=== PATIENT | male | born 1960 | race Caucasian/White ===

== ENCOUNTER 2025-02-08 15:15 | Emergency (ER) | payer OTHER, MEDICARE, SELFPAY ==
[2025-02-08 15:17] VITALS: BP 147/104; PULSE 71; RESP 16; TEMP 36.9; O2SAT 99; BMI 28.5
[2025-02-08 15:42] LABS: Bedside Glucose 373 mg/dL (74-106)
--- NOTE | 2025-02-08 15:45 | EX.ED.DYSGE1 ---
HPI <RADHA Fitzpatrick - Last Filed: 02/08/25 17:06> History of Present Illness Chief Complaint: Hyperglycemia Narrative Narrative: 64-year-old male with past medical history of HLD, PVCs presents with hyperglycemia. He was going through his father's possessions and found a glucometer and decided to check his sugar and it read over 500 and then it had an error so he decided to come in. He has no history of diabetes. He states of the last year he does not have much of an appetite and has lost 20 pounds. Sometimes he is thirsty and drinks a lot which causes him to urinate a lot. He has no abdominal pain. No nausea or vomiting. No fever or chills. PFSH <RADHA Fitzpatrick Last Filed: 02/08/25 17:06> PFS Home Medications ?Medication ?Instructions ?Recorded ?Last Taken ?Type Lactobacillus acidophilus and 2 ea PO DAILY 04/13/16 Unknown History rhamnosus 15 billion cell capsule (Probiotic) Ranitidine [Zantac] 150 mg PO BID 04/13/16 Unknown History aspirin 81 mg chewable tablet 81 mg PO DAILY@0800 04/13/16 Unknown History fluticasone propionate 50 1 spray BID 04/13/16 Unknown History mcg/actuation nasal spray,suspension loratadine 10 mg tablet (Allergy 10 mg PO DAILY 04/13/16 Unknown History Relief (loratadine)) metformin 500 mg tablet 500 mg PO BID 30 days #60 tabs 02/08/25 Unknown Rx Allergy/AdvReac Type Severity Reaction Status Date / Time Sulfa (Sulfonamide Allergy Rash Verified 02/08/25 15:20 Antibiotics) prednisone AdvReac Abd Verified 02/08/25 15:20 cramps/diarrhea Social History Smoking Status: Never smoker ROS <RADHA Fitzpatrick - Last Filed: 02/08/25 17:06> ROS ED ROS Narrative Constitutional: Negative for fever, chills, malaise. CVS: Negative for chest pain. Respiratory: Negative for shortness of breath. GI: Negative for abdominal pain, nausea, vomiting. : Negative for dysuria. EXAM <RADHA Fitzpatrick Last Filed: 02/08/25 17:06> Physical Exam Narrative Exam Narrative: CONST: Patient sitting in no acute distress. EYES: Normal inspection. ENT: Normal inspection, moist mucous membranes. NECK: Normal inspection. RESP: No respiratory distress, CTAB. CVS: Regular rate and rhythm, no murmur, no gallop. ABD: Soft and nontender, no guarding or rebound, nondistended. SKIN: Color normal, no rash, warm, dry, intact. EXTREMITIES: Normal appearance, no pedal edema. NEURO: Alert and answering questions appropriately. PSYCH: Normal affect. Const Vital Signs: 02/08/25 15:17 02/08/25 15:27 Temperature 98.4 F Temperature Source Oral Pulse Rate 71 Respiratory Rate 16 Respiratory Effort Normal Non-Labored Respiratory Pattern Normal Blood Pressure 147/104 H Blood Pressure Mean 118 Pulse Ox 99 Oxygen Delivery Method Room Air <Dr. Tim Petit MD - Last Filed: 02/08/25 15:57> Physical Exam Const Vital Signs: 02/08/25 15:17 02/08/25 15:27 Temperature 98.4 F Temperature Source Oral Pulse Rate 71 Respiratory Rate 16 Respiratory Effort Normal Non-Labored Respiratory Pattern Normal Blood Pressure 147/104 H Blood Pressure Mean 118 Pulse Ox 99 Oxygen Delivery Method Room Air MDM <RADHA Fitzpatrick - Last Filed: 02/08/25 17:06> [facility] MDM Narrative Medical decision making narrative: History gathered from: Patient and spouse Differential includes new onset diabetes, hyperglycemia, DKA 64-year-old male checked his blood sugar at home and it was high. He has no history of diabetes. He checked it because a family member had a glucometer. He appears well and nontoxic. Vital stable. His exam is benign. Fingerstick glucose is over 300. CBC within normal limits. BMP shows normal electrolytes and renal function. Glucose is 377 with normal CO2 and anion gap. This is consistent with new onset type 2 diabetes without DKA. He was given IV fluids and first dose of metformin. I prescribed metformin 500 twice daily for home. His A1c is 13.1 so he will likely require more medication management and should follow-up with a primary care doctor this week. He was discharged in stable condition. I have personally performed a face to face assessment of the patient and have reviewed the MIA Note. I performed a substantive portion of the visit including all aspects of the following. My ragland findings include: History is sick 4-year-old male family history of diabetes. Today checked his blood sugar was elevated came in the emergency department. He is about 20 pound weight loss in the last year but he thinks it was because he was watching what he ate. He denies any vomiting or diarrhea. No dysuria. No known history of him being diabetic. Exam is [well-appearing 64-year-old male. Vital signs stable afebrile. H EENT exam pupils round reactive light. Moist mucous membranes. No facial droop. Normal speech. No trauma. Neck nontender. No lymphadenopathy. Back nontender. Lungs clear equal and symmetrical bilaterally. Heart regular rhythm rate about 70 no murmur. Chest wall ribs nontender. Abdomen soft nontender. Moving all 4 extremities. Nontender no edema. Normal strength. Neurologically is awake and alert. Answering questions following commands.] Medical Decision Making [we checked his blood sugar here was 373. Will do screening labs give him a liter normal saline. Do a hemoglobin A1c. He will be diagnosed as a new onset diabetic and outpatient follow-up. We may choose to start him on metformin.] Other additions or changes: [None] Lab Data Labs: Laboratory Results - last 24 hr 02/08/25 02/08/25 15:24 15:40 WBC 8.2 RBC 5.35 Hgb 15.9 Hct 46.1 MCV 86.2 MCH 29.7 MCHC 34.5 RDW Std Deviation 39.1 RDW Coeff of Rhonda 12.6 Plt Count 243 MPV 10.0 Immature Gran % (Auto) 0.400 Neut % (Auto) 70.0 Lymph % (Auto) 20.2 Mills % (Auto) 7.4 Eos % (Auto) 1.5 Baso % (Auto) 0.5 Absolute Neuts (auto) 5.7 Absolute Lymphs (auto) 1.65 Nucleated RBC % 0 Sodium 138 Potassium 3.9 Chloride 101 Carbon Dioxide 24.3 Anion Gap 12 BUN 12 Creatinine 0.97 Estim Creat Clear Calc 87.13 Est GFR (MDRD) Non-Af 86 BUN/Creatinine Ratio 12.5 Glucose 377 H Hemoglobin A1c 13.1 H Calcium 9.3 POC Glucose 373 H <Dr. Tim Petit MD - Last Filed: 02/08/25 15:57> MDM MDM Narrative Medical decision making narrative: I have personally performed a face to face assessment of the patient and have reviewed the MIA Note. I performed a substantive portion of the visit including all aspects of the following. My ragland findings include: History is sick 4-year-old male family history of diabetes. Today checked his blood sugar was elevated came in the emergency department. He is about 20 pound weight loss in the last year but he thinks it was because he was watching what he ate. He denies any vomiting or diarrhea. No dysuria. No known history of him being diabetic. Exam is [well-appearing 64-year-old male. Vital signs stable afebrile. H EENT exam pupils round reactive light. Moist mucous membranes. No facial droop. Normal speech. No trauma. Neck nontender. No lymphadenopathy. Back nontender. Lungs clear equal and symmetrical bilaterally. Heart regular rhythm rate about 70 no murmur. Chest wall ribs nontender. Abdomen soft nontender. Moving all 4 extremities. Nontender no edema. Normal strength. Neurologically is awake and alert. Answering questions following commands.] Medical Decision Making [we checked his blood sugar here was 373. Will do screening labs give him a liter normal saline. Do a hemoglobin A1c. He will be diagnosed as a new onset diabetic and outpatient follow-up. We may choose to start him on metformin.] Other additions or changes: [None] History & Record Review Discussion w/independent historian: Patient and Family Additional record(s) reviewed:: Prior inpatient record, Prior outpatient record, Prior ED visit and Prior labs Lab Data Attestation: I reviewed the patient's lab results. Labs: Laboratory Results - last 24 hr 02/08/25 02/08/25 15:24 15:40 WBC 8.2 RBC 5.35 Hgb 15.9 Hct 46.1 MCV 86.2 MCH 29.7 MCHC 34.5 RDW Std Deviation 39.1 RDW Coeff of Rhonda 12.6 Plt Count 243 MPV 10.0 Immature Gran % (Auto) 0.400 Neut % (Auto) 70.0 Lymph % (Auto) 20.2 Mills % (Auto) 7.4 Eos % (Auto) 1.5 Baso % (Auto) 0.5 Absolute Neuts (auto) 5.7 Absolute Lymphs (auto) 1.65 Nucleated RBC % 0 Sodium 138 Potassium 3.9 Chloride 101 Carbon Dioxide 24.3 Anion Gap 12 BUN 12 Creatinine 0.97 Estim Creat Clear Calc 87.13 Est GFR (MDRD) Non-Af 86 BUN/Creatinine Ratio 12.5 Glucose 377 H Hemoglobin A1c 13.1 H Calcium 9.3 POC Glucose 373 H Discharge Plan Triage Chief Complaint: Hyperglycemia ED Midlevel Provider: Miranda Tariq ED Provider: Tim Petit Dx/Rx/DC Orders Clinical Impression: New onset type 2 diabetes mellitus Instructions: Diabetes: Caring for Your Body, Diabetes- Measuring Glucose at Home Prescriptions: New metformin 500 mg tablet 500 mg PO BID 30 Days Qty: 60 0RF No Action aspirin 81 MG tablet,chewable 81 mg PO DAILY@0800 Patient Comments: heart health Ranitidine [Zantac] 150 MG tablet 150 mg PO BID Patient Comments: acid reflux fluticasone propionate 1 SPRAY spray,suspension 1 spray NASAL BID Patient Comments: nasal spray loratadine [Allergy Relief (loratadine)] 10 MG tablet 10 mg PO DAILY Patient Comments: allergies L. acidophilus-L. rhamnosus [Probiotic] 1 EACH capsule 2 ea PO DAILY Patient Comments: probiotic Primary Care Provider: Care Physician,No Primary Referrals: Leonora Domínguez MD [Med Staff - Flame Channeler] - Harish Damon MD [Med Staff - Active Staff] - Activity Restrictions/Additional Instructions: You have type 2 diabetes. We ran a blood test called hemoglobin A1c which is 13.1. This measures your average glucose level over the last 3 months and it has been around 330. I prescribed metformin which is a medication to treat the sugars and you take it twice daily. It can have a side effect of GI upset or diarrhea. It is very important you see your primary care doctor next week as you will need medication adjustment and further evaluation. Print Language: Icelandic Disposition Disposition: Home, Self Care
[2025-02-08] MEDS: 0.9% Normal Saline (1000mL) 1,000 ML 999 ML IV (15:50)
[2025-02-08 15:56] LABS: Absolute Lymphocyte Count 1.65 X10^3/uL (0.83-4.51); Absolute Neutrophil Count 5.7 X10^3/uL (2.0-7.7); Basophil# 0.04 X10^3/uL; Basophil% 0.5 % (0-1); Eosinophil# 0.12 X10^3/uL; Eosinophils% 1.5 % (0-5); Hematocrit 46.1 % (40-54); Hemoglobin 15.9 g/dL (13.0-16.5); Lymphocyte # 1.65 X10^3/ul (0.83-4.51); Lymphocyte % 20.2 % (19-41); Mean Corp Hgb Conc 34.5 g/dL (32-36); Mean Corpuscular Hgb 29.7 pg (27.0-32.0); Mean Corpuscular Volume 86.2 fL (80-94); Monocyte% 7.4 % (0-10); NRBC Flagged by Analyzer 0 % (0-5); Neutrophil # 5.71 X10^3/uL (2.7-7.7); Platelet Count 243 K/mm3 (150-450); RBC Distribution Width CV 12.6 % (11.6-14.6); RBC Distribution Width SD 39.1 fl (35.1-43.9); Red Blood Count 5.35 M/mm3 (4.6-6.2); White Blood Count 8.2 K/mm3 (4.4-11.0)
[2025-02-08 16:47] LABS: Hemoglobin A1c 13.1 % (<=5.6)
[2025-02-08 16:50] LABS: Anion Gap 12 (5-15); BUN 12 mg/dL (4-19); BUN/Creat Ratio 12.5 RATIO (10-20); Calcium,Total 9.3 mg/dL (7.6-11.0); Carbon Dioxide 24.3 mmol/L (21.0-32.0); Chloride 101 mmol/L (98-108); Creatinine, Serum 0.97 mg/dL (0.70-1.20); EST Glomerular Filtration Rate 86 (>60); Estimated Creatinine Clearance 87.13 ml/min (50-250); Glucose 377 mg/dL (70-99); Potassium 3.9 mmol/L (3.3-5.1); Sodium Level 138 mmol/L (133-145)
[2025-02-08 17:05] VITALS: BP 149/95; PULSE 59; RESP 18; TEMP 36.6; O2SAT 100
[2025-02-08] MEDS: metFORMIN HCl 500 MG Tablet PO (17:08)
== END 2025-02-08 17:21 | disposition home or self-care (01) ==
PROVIDERS: Physician Assistant; Emergency Provider Emergency Medicine; Visit Provider Emergency Medicine
DX: E11.65 Type 2 diabetes mellitus with hyperglycemia (principal); Z79.82 Long term (current) use of aspirin; Z79.84 Long term (current) use of oral hypoglycemic drugs; Z83.3 Family history of diabetes mellitus
CPT/HCPCS: 80048; 82962; 83036; 85025; 96360; 99283